=== PATIENT | female | born 1935 | race Caucasian/White ===

== ENCOUNTER 2017-03-05 19:55 | Inpatient (IN) | payer OTHER ==
[~2017-03-05] VITALS: Ht 149.8 cm; Wt 81.4 kg
[~2017-03-05 19:55] MED LIST: ALLERGY MEDICIN25 MG PO; AMARYL1 MG PO; AMLODIPINE10 MG; AMLODIPINE10 MG PO; AMLODIPINE5 MG PO; AMOXICILLIN500 M2 PO; ASA; ASPIR 8181 MG; ASPIR 8181 MG PO; GLIMEPIRIDE; GLIMEPIRIDE1 MG PO; LEVOTHYROXIN; LEVOTHYROXIN0.088 MG; LISINOPRIL PO; LISINOPRIL10 MG; LISINOPRIL20 MG PO; MEDROL DOSEPAK4 MG PO; METOPROLOL50 MG; METOPROLOL50 MG PO; MULTIVITAMIN; PRAVASTATIN SOD80 MG; PRAVASTATIN SOD80 MG PO; SYNTHROID,LEVO88 MCG PO
[2017-03-05 19:59] VITALS: BP 224/70
[2017-03-05 20:39] LABS: BASO % 0.2 % (0.0-1.0); EOS % 0.2 % (1.0-4.0); HEMATOCRIT 39.8 % (37.0-47.0); HEMOGLOBIN 13.2 g/dl (12.0-16.0); IG # 0.1 10*3/uL (0.0-0.1); LYMPH # 2.3 10*3/uL (1.3-4.4); LYMPH % 23.1 % (27.0-41.0); MEAN CORPUSCULAR HGB 29.5 pg (27.0-31.0); MEAN CORPUSCULAR HGB CONC 33.2 g/dl (33.0-37.0); MEAN PLATELET VOLUME 11.1 fl (9.6-12.3); MONO # 0.6 10*3/uL (0.1-1.0); MONO % 5.6 % (3.0-9.0); NEUT % 70.2 % (47.0-73.0); PLATELET COUNT AUTOMATED 286 10*3/uL (130-400); RED BLOOD COUNT 4.47 10*6/uL (4.10-5.10); RED CELL DISTRI WIDTH 13.6 % (0-14.5)
[2017-03-05 20:55] LABS: BUN 19 mg/dl (7-24); CARBON DIOXIDE 27 mmol/L (21-32); CHLORIDE 101 mmol/L (98-107); EST GLOM FILT AFRICAN AMERICAN 54 ml/min; GLUCOSE 353 mg/dL (65-99); MAGNESIUM 1.7 mg/dL (1.5-2.1); POTASSIUM 4.1 mmol/L (3.5-5.1); SODIUM 138 mmol/L (136-145)
[2017-03-05 20:57] LABS: C-REACTIVE PROTEIN < 0.29 MG/DL (0-0.3)
[2017-03-05 20:58] LABS: TROPONIN I < 0.015 ng/ml (<0.045)
[2017-03-05] MEDS ORDERED: LEVOTHYROXIN0.088 M1 PO (21:03)
[2017-03-05 21:07] VITALS: BP 144/72
[2017-03-05 22:00] VITALS: BP 195/51
[2017-03-05 22:08] VITALS: BP 195/51
[2017-03-05] MEDS ORDERED: AMARYL2 MG PO (23:39)
[2017-03-05] MEDS ORDERED: Glimepiride1 MG PO (23:41)
[2017-03-05] MEDS ORDERED: AMLODIPINE BESYL5 MG PO (23:43)
[2017-03-05] MEDS ORDERED: LISINOPRIL10 M1 PO (23:44)
[2017-03-06] VITALS: BP 159/83
[2017-03-06 08:00] VITALS: BP 134/86; BP 160/60
[2017-03-06 10:34] VITALS: BP 136/70
[2017-03-06 11:37] LABS: BILIRUBIN NEGATIVE (NEGATIVE); BLOOD NEGATIVE (NEGATIVE); CLARITY SL CLOUDY (CLEAR); COLOR YELLOW (YELLOW); GLUCOSE NEGATIVE (NEGATIVE); KETONE NEGATIVE (NEGATIVE); LEUKO ESTERASE TRACE (NEGATIVE); NITRITE NEGATIVE (NEGATIVE); PH 5.5 (5.0-9.0); PROTEIN NEGATIVE (NEGATIVE); UROBILINOGEN 0.2 E.U./dl (0.2-1.0)
[2017-03-06 11:45] LABS: BACTERIA 1+; MUCOUS TRACE; URINE REFLEX COMMENT YES (NO)
[2017-03-06 12:00] VITALS: BP 155/52
[2017-03-06 16:00] VITALS: BP 158/60
[2017-03-06 20:00] VITALS: BP 161/58
[2017-03-07] VITALS: BP 156/52
[2017-03-07 06:54] LABS: BASO % 0.4 % (0.0-1.0); EOS # 0.3 10*3/uL (0.0-0.4); EOS % 3.5 % (1.0-4.0); HEMATOCRIT 37.5 % (37.0-47.0); HEMOGLOBIN 12.3 g/dl (12.0-16.0); IG # 0.1 10*3/uL (0.0-0.1); LYMPH # 2.5 10*3/uL (1.3-4.4); LYMPH % 28.7 % (27.0-41.0); MEAN CELL VOLUME 90.6 fl (81.0-99.0); MEAN CORPUSCULAR HGB 29.7 pg (27.0-31.0); MEAN CORPUSCULAR HGB CONC 32.8 g/dl (33.0-37.0); MEAN PLATELET VOLUME 10.4 fl (9.6-12.3); MONO # 0.5 10*3/uL (0.1-1.0); MONO % 6.3 % (3.0-9.0); NEUT # 5.2 10*3/uL (2.3-7.9); NEUT % 60.4 % (47.0-73.0); PLATELET COUNT AUTOMATED 224 10*3/uL (130-400); RED BLOOD COUNT 4.14 10*6/uL (4.10-5.10); RED CELL DISTRI WIDTH 13.6 % (0-14.5); WHITE BLOOD COUNT 8.6 10*3/uL (4.8-10.8)
[2017-03-07 07:29] LABS: BUN 12 mg/dl (7-24); CARBON DIOXIDE 27 mmol/L (21-32); CHLORIDE 109 mmol/L (98-107); EST GLOM FILT AFRICAN AMERICAN > 60 ml/min; GLUCOSE 169 mg/dL (65-99); POTASSIUM 4.1 mmol/L (3.5-5.1); SODIUM 142 mmol/L (136-145)
[2017-03-07 08:00] VITALS: BP 166/88
[2017-03-07] MEDS ORDERED: VOLTAREN50 M1 PO (11:07)
[2017-03-07] MEDS ORDERED: LEVOTHYROXIN0.088 M1 PO (11:07)
== END 2017-03-07 12:16 | disposition home or self-care (01) | DRG 304 ==
LOC: ED 19:55 → EDHOLD 21:08 → 4E 21:08
PROVIDERS: Internal Medicine; Student in an Organized Health Care Education/Training Program
DX: I16.1 Hypertensive emergency (principal); N17.0 Acute kidney failure with tubular necrosis; I95.1 Orthostatic hypotension; I25.10 Atherosclerotic heart disease of native coronary artery without angina pectoris; E11.9 Type 2 diabetes mellitus without complications; E78.5 Hyperlipidemia, unspecified; I10 Essential (primary) hypertension; Z87.891 Personal history of nicotine dependence; Z80.8 Family history of malignant neoplasm of other organs or systems; Z82.49 Family history of ischemic heart disease and other diseases of the circulatory system; Z83.3 Family history of diabetes mellitus; Z88.1 Allergy status to other antibiotic agents; Z88.2 Allergy status to sulfonamides; R00.1 Bradycardia, unspecified; R82.71 Bacteriuria

== ENCOUNTER 2018-02-03 12:29 | Emergency (ER) | payer OTHER ==
[~2018-02-03] VITALS: Ht 152.4 cm; Wt 68.9 kg
[~2018-02-03 12:29] MED LIST changes: +AMARYL2 MG PO; +AMLODIPINE BESYL5 MG PO; +Glimepiride1 MG PO; +LEVOTHYROXIN0.088 M1 PO; +LISINOPRIL10 M1 PO; +VOLTAREN50 M1 PO
== END 2018-02-03 14:05 | disposition home or self-care (01) ==
LOC: ED 12:29
DX: S80.12XA Contusion of left lower leg, initial encounter (principal); E11.9 Type 2 diabetes mellitus without complications; E78.5 Hyperlipidemia, unspecified; I10 Essential (primary) hypertension; I25.10 Atherosclerotic heart disease of native coronary artery without angina pectoris; Z98.890 Other specified postprocedural states; Z90.710 Acquired absence of both cervix and uterus; Z87.891 Personal history of nicotine dependence; Z79.899 Other long term (current) drug therapy; Z88.1 Allergy status to other antibiotic agents; Z88.8 Allergy status to other drugs, medicaments and biological substances; V49.88XA Car occupant (driver) (passenger) injured in other specified transport accidents, initial encounter; Y93.89 Activity, other specified; Y92.413 State road as the place of occurrence of the external cause; Y99.9 Unspecified external cause status

== ENCOUNTER → 2022-05-19 | Outpatient (CLI) | payer OTHER | END | disposition home or self-care (01) | LOC: RAD 10:33 | PROVIDERS: ATTEND Chiropractor | DX: M16.12 Unilateral primary osteoarthritis, left hip (principal); I70.202 Unspecified atherosclerosis of native arteries of extremities, left leg; M25.852 Other specified joint disorders, left hip; M85.88 Other specified disorders of bone density and structure, other site; M47.817 Spondylosis without myelopathy or radiculopathy, lumbosacral region; M47.814 Spondylosis without myelopathy or radiculopathy, thoracic region ==

== ENCOUNTER 2023-01-23 09:15 | Emergency (ER) | payer OTHER ==
[~2023-01-23] VITALS: Wt 63.5 kg
[2023-01-23] MEDS ORDERED: TRAMADOL HCL50 MG PO (11:10)
== END 2023-01-23 15:19 | disposition home or self-care (01) ==
LOC: ED 09:15
DX: S46.211A Strain of muscle, fascia and tendon of other parts of biceps, right arm, initial encounter (principal); M19.90 Unspecified osteoarthritis, unspecified site; I25.10 Atherosclerotic heart disease of native coronary artery without angina pectoris; I10 Essential (primary) hypertension; E11.9 Type 2 diabetes mellitus without complications; E78.00 Pure hypercholesterolemia, unspecified; Z88.1 Allergy status to other antibiotic agents; Z88.2 Allergy status to sulfonamides; Z88.8 Allergy status to other drugs, medicaments and biological substances; Z90.710 Acquired absence of both cervix and uterus; Z98.890 Other specified postprocedural states; Z87.891 Personal history of nicotine dependence; X50.1XXA Overexertion from prolonged static or awkward postures, initial encounter; Y93.89 Activity, other specified; Y92.89 Other specified places as the place of occurrence of the external cause; Y99.8 Other external cause status

== ENCOUNTER 2023-04-30 14:12 | Emergency (ER) | payer OTHER ==
[~2023-04-30] VITALS: Ht 142.2 cm; Wt 61.2 kg
[~2023-04-30 14:12] MED LIST changes: +TRAMADOL HCL50 MG PO
[2023-04-30 15:14] LABS: BASO % 0.4 % (0.0-1.0); EOS % 0.4 % (1.0-4.0); LYMPH # 0.7 10*3/uL (1.3-4.4); LYMPH % 14.1 % (27.0-41.0); MEAN CELL VOLUME 90.7 fl (81.0-99.0); MEAN CORPUSCULAR HGB 29.6 pg (27.0-31.0); MEAN CORPUSCULAR HGB CONC 32.7 g/dl (33.0-37.0); MEAN PLATELET VOLUME 10.6 fl (9.6-12.3); MONO # 0.4 10*3/uL (0.1-1.0); MONO % 8.3 % (3.0-9.0); NEUT # 3.9 10*3/uL (2.3-7.9); NEUT % 76.4 % (47.0-73.0); PLATELET COUNT AUTOMATED 147 10*3/uL (130-400); RED BLOOD COUNT 4.96 10*6/uL (4.10-5.10); RED CELL DISTRI WIDTH 17.3 % (0-14.5); WHITE BLOOD COUNT 5.1 10*3/uL (4.8-10.8)
[2023-04-30 15:25] LABS: ACT PARTIAL THROMBO TIME 29.9 SECONDS (20.0-32.1)
[2023-04-30 15:26] LABS: POTASSIUM 4.1 mmol/L (3.4-5.1); TOTAL PROTEIN 7.9 gm/dL (6.0-8.0)
== END 2023-04-30 17:10 | disposition home or self-care (01) ==
LOC: ED 14:12
PROVIDERS: Internal Medicine
DX: S00.03XA Contusion of scalp, initial encounter (principal); M54.9 Dorsalgia, unspecified; I25.10 Atherosclerotic heart disease of native coronary artery without angina pectoris; E11.9 Type 2 diabetes mellitus without complications; I10 Essential (primary) hypertension; M19.90 Unspecified osteoarthritis, unspecified site; E78.00 Pure hypercholesterolemia, unspecified; F03.90 Unspecified dementia, unspecified severity, without behavioral disturbance, psychotic disturbance, mood disturbance, and anxiety; Z88.1 Allergy status to other antibiotic agents; Z88.6 Allergy status to analgesic agent; Z88.8 Allergy status to other drugs, medicaments and biological substances; Z90.710 Acquired absence of both cervix and uterus; Z98.890 Other specified postprocedural states; Z87.891 Personal history of nicotine dependence; W06.XXXA Fall from bed, initial encounter; Y93.89 Activity, other specified; Y92.89 Other specified places as the place of occurrence of the external cause; Y99.8 Other external cause status

== ENCOUNTER 2024-03-23 18:14 | Inpatient (IN) | payer OTHER ==
[~2024-03-23] VITALS: Ht 152.4 cm; Wt 58.1 kg
[~2024-03-23 18:14] MED LIST changes: -AMLODIPINE BESYL5 MG PO; +NORVASC10 MG PO
[2024-03-23 18:25] VITALS: BP 111/81
[2024-03-23] MEDS ORDERED: Albuterol Sulf/Ipratropium 3 ML VIAL NEB ONE (18:45)
[2024-03-23 19:10] LABS: BASO % 0.2 % (0.0-1.0); EOS # 0.1 10*3/uL (0.0-0.4); EOS % 0.8 % (1.0-4.0); HEMATOCRIT 38.2 % (37.0-47.0); LYMPH # 0.6 10*3/uL (1.3-4.4); LYMPH % 7.1 % (27.0-41.0); MEAN CELL VOLUME 94.1 fl (81.0-99.0); MEAN CORPUSCULAR HGB 29.3 pg (27.0-31.0); MEAN CORPUSCULAR HGB CONC 31.2 g/dl (33.0-37.0); MEAN PLATELET VOLUME 9.5 fl (9.6-12.3); MONO # 0.8 10*3/uL (0.1-1.0); MONO % 9.2 % (3.0-9.0); NEUT # 7.2 10*3/uL (2.3-7.9); NEUT % 82.2 % (47.0-73.0); NUCLEATED RED BLOOD CELL 0.2 % (0.0-0.0); PLATELET COUNT AUTOMATED 275 10*3/uL (130-400); RED BLOOD COUNT 4.06 10*6/uL (4.10-5.10); RED CELL DISTRI WIDTH 16.2 % (0-14.5); WHITE BLOOD COUNT 8.7 10*3/uL (4.8-10.8)
[2024-03-23 19:20] LABS: ACT PARTIAL THROMBO TIME 32.9 SECONDS (20.0-32.1)
[2024-03-23 19:27] LABS: POTASSIUM 4.6 mmol/L (3.4-5.1); TOTAL PROTEIN 7.1 gm/dL (6.0-8.0)
[2024-03-23] MEDS ORDERED: FUROSEMIDE 40 MG/4 ML VIAL IV ONE (20:30)
[2024-03-23] MEDS ORDERED: LEVOFLOXACIN 150 ML IV ONE (20:55)
[2024-03-23 22:58] LABS: BILIRUBIN Negative (Negative); BLOOD Negative (Negative); CLARITY Clear (Clear); COLOR Yellow (Yellow); GLUCOSE Negative (Negative); KETONE Negative (Negative); LEUKO ESTERASE 1+ (Negative); NITRITE Negative (Negative); SPECIFIC GRAVITY <= 1.005 (1.001-1.030); UROBILINOGEN 0.2 E.U./dl (0.0-1.0)
[2024-03-23] MEDS ORDERED: BISACODYL 5 MG TAB PO PRN (23:05)
[2024-03-23] MEDS ORDERED: ACETAMINOPHEN 325 MG TAB PO PRN (23:05)
[2024-03-23] MEDS ORDERED: Magnesium Hydroxide 30 ML UDC PO PRN (23:05)
[2024-03-23] MEDS ORDERED: DEXTROSE 10 % IN WATER 250 ML IV PRN (23:05)
[2024-03-23] MEDS ORDERED: Doxycycline Hyclate 100 MG in SODIUM CHLORIDE 0.9% 250 ML IV SCH (23:10)
[2024-03-23] MEDS ORDERED: Ceftriaxone Sodium 1 GM in SYRINGE INFUSION 10 ML IV SCH (23:10)
[2024-03-23] MEDS ORDERED: GUAIFENESIN 600 MG TAB ER PO SCH (23:10)
[2024-03-23 23:19] LABS: BACTERIA TRACE
[2024-03-24 01:34] VITALS: BP 128/76
[2024-03-24 05:28] VITALS: BP 127/59
[2024-03-24 05:44] LABS: BUN 15 mg/dl (9-23); CHLORIDE 97 mmol/L (98-107); POTASSIUM 4.9 mmol/L (3.4-5.1)
[2024-03-24 06:03] LABS: BASO % 0.4 % (0.0-1.0); EOS # 0.1 10*3/uL (0.0-0.4); EOS % 1.1 % (1.0-4.0); HEMATOCRIT 35.5 % (37.0-47.0); LYMPH # 0.7 10*3/uL (1.3-4.4); LYMPH % 9.3 % (27.0-41.0); MEAN CORPUSCULAR HGB 29.5 pg (27.0-31.0); MEAN CORPUSCULAR HGB CONC 32.1 g/dl (33.0-37.0); MEAN PLATELET VOLUME 10.9 fl (9.6-12.3); MONO % 14.2 % (3.0-9.0); NEUT # 5.5 10*3/uL (2.3-7.9); NEUT % 74.6 % (47.0-73.0); PLATELET COUNT AUTOMATED 230 10*3/uL (130-400); RED BLOOD COUNT 3.86 10*6/uL (4.10-5.10); RED CELL DISTRI WIDTH 16.2 % (0-14.5); WHITE BLOOD COUNT 7.3 10*3/uL (4.8-10.8)
[2024-03-24] MEDS ORDERED: INSULIN LISPRO 1 UNIT/0.01 ML SQ SCH (07:30)
[2024-03-24 08:00] VITALS: BP 117/58
[2024-03-24] MEDS ORDERED: SODIUM CHLORIDE 0.9% 250 ML BAG IV ONE (09:06)
[2024-03-24] MEDS ORDERED: Doxycycline Hyclate 100 MG VIAL IV ONE (09:06)
[2024-03-24] MEDS ORDERED: FUROSEMIDE 40 MG/4 ML VIAL IV SCH (10:00)
[2024-03-24] MEDS ORDERED: APIXABAN 5 MG TAB PO SCH (10:00)
[2024-03-24 10:10] LABS: VITAMIN D, 25-HYDROXY 4.9 ng/mL (30-100)
[2024-03-24] MEDS ORDERED: AIRSUPRA 90-810.7 GM INH (11:22)
[2024-03-24] MEDS ORDERED: ELIQUIS2.5 M1 PO (11:24)
[2024-03-24] MEDS ORDERED: Diabetic Tussi118 ML PO (11:25)
[2024-03-24] MEDS ORDERED: HUMALOG100 UNIT/1 SQ (11:27)
[2024-03-24] MEDS ORDERED: ANTI-DIARRHEAL2 MG PO (11:29)
[2024-03-24] MEDS ORDERED: HUMULIN N100 UNIT/1 SC (11:31)
[2024-03-24] MEDS ORDERED: Ipratropium Brom3 ML INH (11:33)
[2024-03-24] MEDS ORDERED: MELATONIN3 MG PO (11:34)
[2024-03-24] MEDS ORDERED: TYLENOL325 M1 PO (11:35)
[2024-03-24] MEDS ORDERED: AIRSUPRA INH PRN (14:05)
[2024-03-24] MEDS ORDERED: Albuterol Sulf/Ipratropium 14.7 GM INHALER INH PRN (14:05)
[2024-03-24] MEDS ORDERED: ERGOCALCIFEROL 50,000 IU CAP (1.25 MG) PO ONE (14:10)
[2024-03-24] MEDS ORDERED: Albuterol Sulf/Ipratropium 3 ML VIAL NEB PRN (14:20)
[2024-03-24 16:00] VITALS: BP 135/54
[2024-03-24 16:30] VITALS: BP 135/54
[2024-03-24 20:00] VITALS: BP 132/56
[2024-03-24] MEDS ORDERED: Melatonin 3 MG TABLET PO SCH (22:00)
[2024-03-25] VITALS: BP 130/58
[2024-03-25 06:28] LABS: BASO % 0.3 % (0.0-1.0); EOS # 0.2 10*3/uL (0.0-0.4); EOS % 2.8 % (1.0-4.0); HEMATOCRIT 33.9 % (37.0-47.0); LYMPH # 0.8 10*3/uL (1.3-4.4); LYMPH % 12.3 % (27.0-41.0); MEAN CELL VOLUME 92.6 fl (81.0-99.0); MEAN CORPUSCULAR HGB 29.2 pg (27.0-31.0); MEAN CORPUSCULAR HGB CONC 31.6 g/dl (33.0-37.0); MEAN PLATELET VOLUME 9.4 fl (9.6-12.3); MONO # 0.9 10*3/uL (0.1-1.0); MONO % 14.4 % (3.0-9.0); NEUT # 4.5 10*3/uL (2.3-7.9); NEUT % 69.9 % (47.0-73.0); PLATELET COUNT AUTOMATED 215 10*3/uL (130-400); RED BLOOD COUNT 3.66 10*6/uL (4.10-5.10); RED CELL DISTRI WIDTH 16.1 % (0-14.5); WHITE BLOOD COUNT 6.4 10*3/uL (4.8-10.8)
[2024-03-25 07:33] LABS: BUN 15 mg/dl (9-23); CHLORIDE 95 mmol/L (98-107)
[2024-03-25 07:39] LABS: POTASSIUM 3.7 mmol/L (3.4-5.1)
[2024-03-25 08:00] VITALS: BP 132/54
[2024-03-25] MEDS ORDERED: APIXABAN 5 MG TAB PO SCH (10:00)
[2024-03-25] MEDS ORDERED: Insulin Glargine, Recombinan 1 UNIT/0.01 ML SC SCH (10:00)
[2024-03-25] MEDS ORDERED: SIMVASTATIN 20 MG TAB PO SCH (10:00)
[2024-03-25] MEDS ORDERED: amLODIPine besylate 10 MG TAB PO SCH (10:00)
[2024-03-25] MEDS ORDERED: Levothyroxine Sodium 100 MCG TAB PO SCH (10:00)
[2024-03-25 12:00] VITALS: BP 122/40
[2024-03-25 16:00] VITALS: BP 124/53; BP 151/99
[2024-03-25 20:00] VITALS: BP 127/52
[2024-03-26 00:26] VITALS: BP 113/60
[2024-03-26 07:04] LABS: BASO % 0.2 % (0.0-1.0); EOS # 0.2 10*3/uL (0.0-0.4); HEMATOCRIT 35.4 % (37.0-47.0); LYMPH # 0.8 10*3/uL (1.3-4.4); LYMPH % 14.1 % (27.0-41.0); MEAN CELL VOLUME 90.8 fl (81.0-99.0); MEAN CORPUSCULAR HGB 29.2 pg (27.0-31.0); MEAN CORPUSCULAR HGB CONC 32.2 g/dl (33.0-37.0); MEAN PLATELET VOLUME 9.4 fl (9.6-12.3); MONO # 0.7 10*3/uL (0.1-1.0); MONO % 12.9 % (3.0-9.0); NEUT # 3.9 10*3/uL (2.3-7.9); NEUT % 69.6 % (47.0-73.0); PLATELET COUNT AUTOMATED 237 10*3/uL (130-400); RED CELL DISTRI WIDTH 16.1 % (0-14.5); WHITE BLOOD COUNT 5.7 10*3/uL (4.8-10.8)
[2024-03-26 07:32] LABS: BUN 13 mg/dl (9-23); CHLORIDE 96 mmol/L (98-107); POTASSIUM 3.7 mmol/L (3.4-5.1)
[2024-03-26 08:00] VITALS: BP 142/50
[2024-03-26 12:00] VITALS: BP 127/45
[2024-03-26 16:00] VITALS: BP 136/57
[2024-03-26 20:00] VITALS: BP 141/51
[2024-03-27 00:21] VITALS: BP 130/47
[2024-03-27 08:00] VITALS: BP 119/51
[2024-03-27] MEDS ORDERED: FUROSEMIDE 40 MG TAB PO SCH (10:00)
[2024-03-27] MEDS ORDERED: LASIX40 MG PO (11:19)
[2024-03-27] MEDS ORDERED: LEVOTHYROXINE100 MC1 PO (11:19)
[2024-03-27] MEDS ORDERED: MUCINEX1200 M1 PO (11:19)
[2024-03-27] MEDS ORDERED: KLOR-CON 1010 ME1 PO (11:19)
[2024-03-27] MEDS ORDERED: VIBRA-TAB100 MG PO (11:19)
[2024-03-27] MEDS ORDERED: ELIQUIS5 M1 PO (11:19)
[2024-03-27 12:00] VITALS: BP 112/54
== END 2024-03-27 15:13 | DRG 177 ==
LOC: ED 18:14 → 4E 21:20 → EDHOLD 21:20 → 4E 03-24 15:50
PROVIDERS: Emergency Medicine; Family Medicine; Student in an Organized Health Care Education/Training Program; ADMIT Internal Medicine; ATTEND Internal Medicine
DX: J15.69 Pneumonia due to other Gram-negative bacteria (principal); I50.33 Acute on chronic diastolic (congestive) heart failure; J96.01 Acute respiratory failure with hypoxia; J91.8 Pleural effusion in other conditions classified elsewhere; E87.1 Hypo-osmolality and hyponatremia; I48.92 Unspecified atrial flutter; I25.10 Atherosclerotic heart disease of native coronary artery without angina pectoris; E11.9 Type 2 diabetes mellitus without complications; E78.5 Hyperlipidemia, unspecified; Z66 Do not resuscitate; E03.9 Hypothyroidism, unspecified; D50.9 Iron deficiency anemia, unspecified; E55.9 Vitamin D deficiency, unspecified; E87.8 Other disorders of electrolyte and fluid balance, not elsewhere classified; I11.0 Hypertensive heart disease with heart failure; Z79.899 Other long term (current) drug therapy; Z79.01 Long term (current) use of anticoagulants; Z79.2 Long term (current) use of antibiotics; Z88.8 Allergy status to other drugs, medicaments and biological substances; Z91.09 Other allergy status, other than to drugs and biological substances; Z90.710 Acquired absence of both cervix and uterus; Z95.1 Presence of aortocoronary bypass graft; Z87.891 Personal history of nicotine dependence; Z83.3 Family history of diabetes mellitus; Z82.49 Family history of ischemic heart disease and other diseases of the circulatory system; Z80.8 Family history of malignant neoplasm of other organs or systems

== ENCOUNTER 2024-04-07 22:38 | Emergency (ER) | payer OTHER ==
[~2024-04-07 22:38] MED LIST changes: +AIRSUPRA 90-810.7 GM INH; +ANTI-DIARRHEAL2 MG PO; +Diabetic Tussi118 ML PO; +ELIQUIS2.5 M1 PO; +ELIQUIS5 M1 PO; +HUMALOG100 UNIT/1 SQ; +HUMULIN N100 UNIT/1 SC; +Ipratropium Brom3 ML INH; +KLOR-CON 1010 ME1 PO; +LASIX40 MG PO; +LEVOTHYROXINE100 MC1 PO; +MELATONIN3 MG PO; +MUCINEX1200 M1 PO; +TYLENOL325 M1 PO; +VIBRA-TAB100 MG PO
[2024-04-07 23:05] LABS: BASO % 0.5 % (0.0-1.0); EOS # 0.2 10*3/uL (0.0-0.4); EOS % 3.6 % (1.0-4.0); HEMATOCRIT 37.9 % (37.0-47.0); LYMPH # 1.4 10*3/uL (1.3-4.4); LYMPH % 21.3 % (27.0-41.0); MEAN CELL VOLUME 95.2 fl (81.0-99.0); MEAN CORPUSCULAR HGB 28.9 pg (27.0-31.0); MEAN CORPUSCULAR HGB CONC 30.3 g/dl (33.0-37.0); MEAN PLATELET VOLUME 10.3 fl (9.6-12.3); MONO # 0.7 10*3/uL (0.1-1.0); MONO % 10.9 % (3.0-9.0); NEUT # 4.2 10*3/uL (2.3-7.9); NEUT % 63.5 % (47.0-73.0); PLATELET COUNT AUTOMATED 212 10*3/uL (130-400); RED BLOOD COUNT 3.98 10*6/uL (4.10-5.10); RED CELL DISTRI WIDTH 16.3 % (0-14.5); WHITE BLOOD COUNT 6.6 10*3/uL (4.8-10.8)
[2024-04-07 23:20] LABS: ACT PARTIAL THROMBO TIME 29.6 SECONDS (20.0-32.1)
[2024-04-07 23:22] LABS: BUN 17 mg/dl (9-23); CHLORIDE 102 mmol/L (98-107); LIPASE 34 U/L (12-53); POTASSIUM 3.5 mmol/L (3.4-5.1)
== END 2024-04-08 03:09 ==
LOC: ED 22:38
PROVIDERS: Internal Medicine
DX: I95.89 Other hypotension (principal); I50.9 Heart failure, unspecified; M19.90 Unspecified osteoarthritis, unspecified site; I25.10 Atherosclerotic heart disease of native coronary artery without angina pectoris; I11.0 Hypertensive heart disease with heart failure; E11.9 Type 2 diabetes mellitus without complications; E78.00 Pure hypercholesterolemia, unspecified; Z88.1 Allergy status to other antibiotic agents; Z88.2 Allergy status to sulfonamides; Z88.8 Allergy status to other drugs, medicaments and biological substances; Z90.710 Acquired absence of both cervix and uterus; Z98.890 Other specified postprocedural states; Z87.891 Personal history of nicotine dependence

== ENCOUNTER 2024-07-31 05:33 | Emergency (ER) | payer OTHER ==
[~2024-07-31] VITALS: Ht 152.4 cm; Wt 54.4 kg
== END 2024-07-31 07:42 | disposition home or self-care (01) ==
LOC: ED 05:33
DX: S09.8XXA Other specified injuries of head, initial encounter (principal); M19.90 Unspecified osteoarthritis, unspecified site; I25.10 Atherosclerotic heart disease of native coronary artery without angina pectoris; E11.9 Type 2 diabetes mellitus without complications; I11.0 Hypertensive heart disease with heart failure; I50.9 Heart failure, unspecified; E78.00 Pure hypercholesterolemia, unspecified; Z88.1 Allergy status to other antibiotic agents; Z88.2 Allergy status to sulfonamides; Z88.8 Allergy status to other drugs, medicaments and biological substances; Z90.710 Acquired absence of both cervix and uterus; Z98.890 Other specified postprocedural states; Z87.891 Personal history of nicotine dependence; W06.XXXA Fall from bed, initial encounter; Y93.89 Activity, other specified; Y92.129 Unspecified place in nursing home as the place of occurrence of the external cause; Y99.8 Other external cause status

== ENCOUNTER 2024-09-14 06:55 | Inpatient (IN) | payer OTHER ==
[~2024-09-14] VITALS: Ht 157.5 cm; Wt 42.2 kg
[2024-09-14 06:56] VITALS: BP 134/50
[2024-09-14] MEDS ORDERED: Albuterol Sulf/Ipratropium 3 ML VIAL NEB ONE (07:05)
[2024-09-14] MEDS ORDERED: Albuterol Sulfate 2.5 MG/3 ML VIAL NEB ONE (07:05)
[2024-09-14 07:39] LABS: HEMATOCRIT 41.2 % (37.0-47.0); MEAN CELL VOLUME 91.8 fl (81.0-99.0); MEAN CORPUSCULAR HGB 29.2 pg (27.0-31.0); MEAN CORPUSCULAR HGB CONC 31.8 g/dl (33.0-37.0); MEAN PLATELET VOLUME 10.3 fl (9.6-12.3); PLATELET COUNT AUTOMATED 239 10*3/uL (130-400); RED BLOOD COUNT 4.49 10*6/uL (4.10-5.10); RED CELL DISTRI WIDTH 15.8 % (0-14.5); WHITE BLOOD COUNT 12.5 10*3/uL (4.8-10.8)
[2024-09-14 07:42] LABS: MANUAL DIFF REFLEX YES
[2024-09-14 08:04] LABS: POTASSIUM 4.2 mmol/L (3.4-5.1); TOTAL PROTEIN 8.1 gm/dL (6.0-8.0)
[2024-09-14] MEDS ORDERED: SODIUM CHLORIDE 0.9% 1,000 ML IV ONE ×2 (08:05→17:25)
[2024-09-14 08:15] LABS: TOTAL CELLS COUNTED 100 #CELLS
[2024-09-14 08:16] LABS: OVALOCYTES FEW; PLATELET SUFFICIENCY NORMAL (NORMAL); VACUOLATION OF NEUTROPHILS SLIGHT
[2024-09-14 08:25] LABS: BILIRUBIN 1+ (Negative); BLOOD Negative (Negative); CLARITY Cloudy (Clear); COLOR Dark Yellow (Yellow); GLUCOSE Negative (Negative); KETONE Trace (Negative); LEUKO ESTERASE Negative (Negative); NITRITE Negative (Negative)
[2024-09-14 08:50] LABS: ABG O2 SATURATION 99.3 % (94.0-98.0); ARTERIAL BLOOD GAS PH 7.39 (7.350-7.450); ARTERIAL BLOOD GAS PO2 240.1 mmHg (83.0-108.0)
[2024-09-14 09:13] LABS: HYALINE CAST 31-40
[2024-09-14 09:14] LABS: RBC 0-2 rbc/hpf (0-2)
[2024-09-14 09:17] LABS: BACTERIA 3+
[2024-09-14 10:06] VITALS: BP 124/48
[2024-09-14] MEDS ORDERED: Ceftriaxone Sodium 1 GM/10 ML SYR IV ONE (10:25)
[2024-09-14] MEDS ORDERED: TEMAZEPAM 15 MG CAP PO PRN (12:20)
[2024-09-14] MEDS ORDERED: BISACODYL 5 MG TAB PO PRN (12:20)
[2024-09-14] MEDS ORDERED: ACETAMINOPHEN 650 MG SUPP R PRN (12:20)
[2024-09-14] MEDS ORDERED: BISACODYL 10 MG SUPP R PRN (12:20)
[2024-09-14] MEDS ORDERED: Ondansetron Hydrochloride 4 MG/2 ML VIAL IV PRN (12:20)
[2024-09-14] MEDS ORDERED: MORPHINE Sulfate 2 MG/ML SYR IV PRN (12:20)
[2024-09-14] MEDS ORDERED: Acetaminophen/Hydrocodone 5 MG/325 MG TABLET PO PRN (12:20)
[2024-09-14] MEDS ORDERED: ACETAMINOPHEN 325 MG TAB PO PRN (12:20)
[2024-09-14] MEDS ORDERED: Magnesium Hydroxide 30 ML UDC PO PRN (12:20)
[2024-09-14] MEDS ORDERED: Pantoprazole Sodium 40 MG TAB PO PRN (12:25)
[2024-09-14 13:22] VITALS: BP 114/50
[2024-09-14 16:00] VITALS: BP 122/46
[2024-09-14 20:00] VITALS: BP 117/50
[2024-09-14] MEDS ORDERED: APIXABAN 5 MG TAB PO SCH (22:00)
[2024-09-15] VITALS: BP 106/43
[2024-09-15 06:04] LABS: BUN 27 mg/dl (9-23); CHLORIDE 104 mmol/L (98-107)
[2024-09-15 06:11] LABS: HEMATOCRIT 35.3 % (37.0-47.0); MEAN CELL VOLUME 93.1 fl (81.0-99.0); MEAN CORPUSCULAR HGB CONC 31.2 g/dl (33.0-37.0); MEAN PLATELET VOLUME 11.2 fl (9.6-12.3); PLATELET COUNT AUTOMATED 198 10*3/uL (130-400); RED BLOOD COUNT 3.79 10*6/uL (4.10-5.10); RED CELL DISTRI WIDTH 15.8 % (0-14.5); WHITE BLOOD COUNT 11.3 10*3/uL (4.8-10.8)
[2024-09-15 06:18] LABS: MANUAL DIFF REFLEX YES
[2024-09-15 07:10] LABS: TOTAL CELLS COUNTED 100 #CELLS
[2024-09-15 07:11] LABS: BURR CELLS FEW; OVALOCYTES FEW; PLATELET SUFFICIENCY NORMAL (NORMAL); POLYCHROMASIA SLIGHT; ROULEAUX SLIGHT
[2024-09-15 08:00] VITALS: BP 111/41
[2024-09-15] MEDS ORDERED: SIMVASTATIN 20 MG TAB PO SCH (10:00)
[2024-09-15] MEDS ORDERED: amLODIPine besylate 10 MG TAB PO SCH (10:00)
[2024-09-15] MEDS ORDERED: Levothyroxine Sodium 100 MCG TAB PO SCH (10:00)
[2024-09-15] MEDS ORDERED: Insulin Glargine, Recombinan 1 UNIT/0.01 ML SC SCH (10:00)
[2024-09-15] MEDS ORDERED: Ceftriaxone Sodium 1 GM in SYRINGE INFUSION 10 ML IV SCH (10:00)
[2024-09-15 12:00] VITALS: BP 118/51
[2024-09-15] MEDS ORDERED: Doxycycline Hyclate 100 MG in SODIUM CHLORIDE 0.9% 250 ML IV SCH (12:00)
[2024-09-15 16:00] VITALS: BP 96/38
[2024-09-15 20:00] VITALS: BP 104/34
[2024-09-15] MEDS ORDERED: GUAIFENESIN 600 MG TAB ER PO SCH (22:00)
[2024-09-16] VITALS: BP 113/43
[2024-09-16 07:00] LABS: BUN 23 mg/dl (9-23); CHLORIDE 107 mmol/L (98-107); POTASSIUM 3.7 mmol/L (3.4-5.1)
[2024-09-16 07:40] LABS: HEMATOCRIT 34.8 % (37.0-47.0); MEAN CELL VOLUME 94.3 fl (81.0-99.0); MEAN CORPUSCULAR HGB 28.5 pg (27.0-31.0); MEAN CORPUSCULAR HGB CONC 30.2 g/dl (33.0-37.0); MEAN PLATELET VOLUME 10.7 fl (9.6-12.3); PLATELET COUNT AUTOMATED 197 10*3/uL (130-400); RED BLOOD COUNT 3.69 10*6/uL (4.10-5.10); RED CELL DISTRI WIDTH 15.4 % (0-14.5); WHITE BLOOD COUNT 5.4 10*3/uL (4.8-10.8)
[2024-09-16 07:43] LABS: MANUAL DIFF REFLEX YES
[2024-09-16 08:00] VITALS: BP 114/54
[2024-09-16 08:32] LABS: BASOPHILS 1 % (0-1); OVALOCYTES FEW; POLYCHROMASIA SLIGHT; TOTAL CELLS COUNTED 100 #CELLS
[2024-09-16 08:33] LABS: BURR CELLS FEW; PLATELET SUFFICIENCY NORMAL (NORMAL); ROULEAUX SLIGHT
[2024-09-16 12:00] VITALS: BP 118/61
[2024-09-16 16:00] VITALS: BP 144/62
[2024-09-16 20:00] VITALS: BP 121/44
[2024-09-17] VITALS: BP 110/41
[2024-09-17 06:41] LABS: BASO % 0.3 % (0.0-1.0); EOS % 0.5 % (1.0-4.0); HEMATOCRIT 38.2 % (37.0-47.0); MEAN CORPUSCULAR HGB 28.7 pg (27.0-31.0); MEAN CORPUSCULAR HGB CONC 31.2 g/dl (33.0-37.0); MEAN PLATELET VOLUME 10.9 fl (9.6-12.3); MONO # 1.3 10*3/uL (0.1-1.0); MONO % 16.6 % (3.0-9.0); NEUT # 5.5 10*3/uL (2.3-7.9); NEUT % 68.7 % (47.0-73.0); RED BLOOD COUNT 4.15 10*6/uL (4.10-5.10); RED CELL DISTRI WIDTH 15.3 % (0-14.5); WHITE BLOOD COUNT 7.9 10*3/uL (4.8-10.8)
[2024-09-17 06:53] LABS: PLATELET COUNT AUTOMATED 272 10*3/uL (130-400)
[2024-09-17 06:59] LABS: BUN 16 mg/dl (9-23); CHLORIDE 105 mmol/L (98-107); POTASSIUM 3.9 mmol/L (3.4-5.1)
[2024-09-17 08:00] VITALS: BP 130/84
[2024-09-17 12:00] VITALS: BP 125/58
[2024-09-17] MEDS ORDERED: FUROSEMIDE 40 MG/4 ML VIAL IV ONE (14:00)
[2024-09-17] MEDS ORDERED: Albuterol Sulf/Ipratropium 3 ML VIAL NEB SCH (14:13)
[2024-09-17 16:00] VITALS: BP 110/50
[2024-09-17 20:00] VITALS: BP 137/52
[2024-09-18] VITALS: BP 124/35
[2024-09-18 08:00] VITALS: BP 101/43
[2024-09-18] MEDS ORDERED: FUROSEMIDE 40 MG/4 ML VIAL IV SCH (10:00)
[2024-09-18] MEDS ORDERED: Ceftriaxone Sodium 2 GM,IV 1 EA in SYRINGE INFUSION 20 ML IV SCH (10:00)
[2024-09-18 12:00] VITALS: BP 94/55
[2024-09-18 15:03] LABS: MYCOPLASMA PNEUMONIAE IGG 482 U/mL (0-99); MYCOPLASMA PNEUMONIAE IGM <770 U/mL (0-769)
[2024-09-18 16:00] VITALS: BP 134/57
[2024-09-18] MEDS ORDERED: methylPREDNISolone sod succ 40 MG VIAL IV SCH (18:00)
[2024-09-18 20:00] VITALS: BP 106/48
[2024-09-19] VITALS: BP 110/48
[2024-09-19 07:15] VITALS: BP 124/72
[2024-09-19 12:00] VITALS: BP 116/54
[2024-09-19 16:00] VITALS: BP 134/49
[2024-09-19 20:00] VITALS: BP 108/55
[2024-09-20] VITALS: BP 120/50
[2024-09-20 08:00] VITALS: BP 128/46
[2024-09-20 12:00] VITALS: BP 134/67
[2024-09-20 16:00] VITALS: BP 138/58
[2024-09-20 20:00] VITALS: BP 137/67
[2024-09-21] VITALS: BP 107/57
[2024-09-21 06:33] LABS: BUN 16 mg/dl (9-23); CHLORIDE 104 mmol/L (98-107); POTASSIUM 3.2 mmol/L (3.4-5.1)
[2024-09-21] MEDS ORDERED: POTASSIUM CHLORIDE 20 MEQ TAB PO ONE (07:00)
[2024-09-21 07:21] LABS: EOS % 0.4 % (1.0-4.0); MEAN CELL VOLUME 90.9 fl (81.0-99.0); MEAN CORPUSCULAR HGB 28.4 pg (27.0-31.0); MEAN CORPUSCULAR HGB CONC 31.3 g/dl (33.0-37.0); MONO # 0.9 10*3/uL (0.1-1.0); MONO % 13.1 % (3.0-9.0); NEUT # 4.6 10*3/uL (2.3-7.9); NEUT % 67.6 % (47.0-73.0); PLATELET COUNT AUTOMATED 290 10*3/uL (130-400); RED BLOOD COUNT 3.52 10*6/uL (4.10-5.10); RED CELL DISTRI WIDTH 15.8 % (0-14.5); WHITE BLOOD COUNT 6.8 10*3/uL (4.8-10.8)
[2024-09-21 08:00] VITALS: BP 128/62
[2024-09-21 12:00] VITALS: BP 133/60
[2024-09-21] MEDS ORDERED: PREDNISONE10 MG PO (12:07)
[2024-09-21] MEDS ORDERED: OMNICEF300 MG PO (12:07)
== END 2024-09-21 15:40 | DRG 871 ==
LOC: ED 06:55 → 4E 11:27 → EDHOLD 11:27 → 4E 12:24
PROVIDERS: Emergency Medicine; Registered Nurse; Student in an Organized Health Care Education/Training Program; ADMIT Family Medicine; ATTEND Family Medicine
DX: A41.9 Sepsis, unspecified organism (principal); G93.41 Metabolic encephalopathy; J15.69 Pneumonia due to other Gram-negative bacteria; J96.21 Acute and chronic respiratory failure with hypoxia; N17.0 Acute kidney failure with tubular necrosis; E87.20 Acidosis, unspecified; N39.0 Urinary tract infection, site not specified; I25.810 Atherosclerosis of coronary artery bypass graft(s) without angina pectoris; J81.1 Chronic pulmonary edema; I50.32 Chronic diastolic (congestive) heart failure; J44.0 Chronic obstructive pulmonary disease with (acute) lower respiratory infection; R65.20 Severe sepsis without septic shock; Z66 Do not resuscitate; I48.91 Unspecified atrial fibrillation; I11.0 Hypertensive heart disease with heart failure; E03.9 Hypothyroidism, unspecified; E78.2 Mixed hyperlipidemia; E11.65 Type 2 diabetes mellitus with hyperglycemia; E80.6 Other disorders of bilirubin metabolism; R74.01 Elevation of levels of liver transaminase levels; S31.101A Unspecified open wound of abdominal wall, left upper quadrant without penetration into peritoneal cavity, initial encounter; Z20.822 Contact with and (suspected) exposure to COVID-19; S01.80XA Unspecified open wound of other part of head, initial encounter; I27.20 Pulmonary hypertension, unspecified; Z79.899 Other long term (current) drug therapy; Z79.01 Long term (current) use of anticoagulants; Z79.2 Long term (current) use of antibiotics; Z88.1 Allergy status to other antibiotic agents; Z88.8 Allergy status to other drugs, medicaments and biological substances; Z91.09 Other allergy status, other than to drugs and biological substances; Z90.710 Acquired absence of both cervix and uterus; Z95.1 Presence of aortocoronary bypass graft; Z87.891 Personal history of nicotine dependence; Z80.8 Family history of malignant neoplasm of other organs or systems; Z82.49 Family history of ischemic heart disease and other diseases of the circulatory system; Z83.3 Family history of diabetes mellitus; X58.XXXA Exposure to other specified factors, initial encounter; Y93.89 Activity, other specified; Y92.89 Other specified places as the place of occurrence of the external cause; Y99.8 Other external cause status